=== PATIENT | female | born 1960 | race Caucasian/White ===

== ENCOUNTER 2018-02-12 10:46 | Inpatient (IN) | payer MEDICARE, OTHER ==
[~2018-02-12] VITALS: Ht 167.6 cm; Wt 58.0 kg
[2018-02-12] MEDS ORDERED: HALO5TAB5 PO (11:05)
[2018-02-12] MEDS ORDERED: SERT25TA3 PO (11:05)
[2018-02-12 11:33] LABS: BASOPHILS % (AUTO) 0 % (0-1); EOSINOPHILS # (AUTO) 0.03 x10^3/uL (0-0.4); EOSINOPHILS % (AUTO) 0 % (1-7); LYMPHOCYTES # (AUTO) 0.41 x10^3/uL (1-3.4); LYMPHOCYTES % (AUTO) 5 % (22-44); MD NO; MEAN CORPUSCULAR HEMOGLOBIN 28.4 pg (27.0-34.8); MEAN CORPUSCULAR HGB CONC 32.6 g/dL (32.4-35.8); MEAN CORPUSCULAR VOLUME 86.9 fL (80-100); MEAN PLATELET VOLUME 8.6 fL (7.4-10.4); MONOCYTES # (AUTO) 0.21 x10^3/uL (0.2-0.8); MONOCYTES % (AUTO) 3 % (2-9); NEUTROPHILS # (AUTO) 7.75 x10^3/uL (1.8-6.8); NEUTROPHILS % (AUTO) 92 % (42-75); PLATELET COUNT 236 x10^3/uL (130-400); RED BLOOD COUNT 4.65 x10^6/uL (3.82-5.3); RED CELL DISTRIBUTION WIDTH 13.4 % (9.6-15.2)
[2018-02-12] MEDS ORDERED: LORazepam 2 MG/ML, 1ML ONE (11:46)
[2018-02-12 11:47] LABS: ALANINE AMINOTRANSFERASE 68 U/L (12-78); ALBUMIN 3.3 g/dL (3.4-5.0); ANION GAP 6 mmol/L (5-15); CALCIUM 8.8 mg/dL (8.5-10.1); CHLORIDE 105 mmol/L (98-107); CREATININE 0.75 mg/dL (0.55-1.02)
[2018-02-12 11:50] LABS: SALICYLATE LEVEL < 1.7 mg/dL (2.8-20.0)
[2018-02-12 11:57] LABS: ALKALINE PHOSPHATASE 99 U/L (45-117); BILIRUBIN,TOTAL 0.4 mg/dL (0.2-1.0)
[2018-02-12 11:58] LABS: ACETAMINOPHEN < 2 mcg/mL (10-30)
[2018-02-12] MEDS ORDERED: LORazepam 2 MG/ML, 1ML IM ONE (12:30)
[2018-02-12] MEDS ORDERED: ZIPRASIDONE 20 MG INJ IM ONE ×2 (13:01→13:30)
[2018-02-12] MEDS: ENOXAPARIN 40 MG/0.4 ML SQ SCH (14:00)
[2018-02-12] MEDS ORDERED: ACETAMINOPHEN 325 MG TABLET PO PRN (14:00)
[2018-02-12] MEDS: HALOPERIDOL 5 MG TABLET PO SCH ×2 (16:00→21:00)
[2018-02-12] MEDS: ZIPRASIDONE 20 MG INJ IM PRN ×2 (17:50→23:04)
[2018-02-12] MEDS ORDERED: DIPHENHYDRAMINE 50 MG/ML, 1ML ONE (18:09)
[2018-02-12] MEDS: DIPHENHYDRAMINE 50 MG/ML, 1ML IM PRN (18:12)
[2018-02-12 19:25] VITALS: BP 118/65
[2018-02-12] MEDS: HALOPERIDOL 5 MG/ML IM PRN (22:41)
[2018-02-12] MEDS: LORazepam 2 MG/ML, 1ML IM PRN (23:04)
[2018-02-13 00:46] LABS: CULTURE INDICATED? NO; MICROSCOPIC NOT IND
[2018-02-13 00:57] LABS: AMPHETAMINE SCREEN, URINE Negative (Negative); BARBITURATE SCREEN, URINE Negative (Negative); BENZODIAZEPINE SCREEN, URINE Positive (Negative); CANNABINOID SCREEN, URINE Negative (Negative); COCAINE SCREEN, URINE Negative (Negative); METHADONE SCREEN, URINE Negative (Negative); OPIATE SCREEN, URINE Negative (Negative)
[2018-02-13 02:05] VITALS: BP 112/77
[2018-02-13] MEDS: DIPHENHYDRAMINE 50 MG/ML, 1ML IM PRN ×2 (03:34→14:42)
[2018-02-13] MEDS: LORazepam 2 MG/ML, 1ML IM PRN (06:15)
[2018-02-13 07:54] VITALS: BP 97/58
[2018-02-13] MEDS: HALOPERIDOL 5 MG TABLET PO SCH ×3 (09:00→22:21)
[2018-02-13] MEDS ORDERED: HALOPERIDOL 1 MG TABLET ONE ×2 (10:28→16:39)
[2018-02-13] MEDS: SERTRALINE 50MG TABLET PO SCH (10:32)
[2018-02-13] MEDS: ENOXAPARIN 40 MG/0.4 ML SQ SCH (10:32)
[2018-02-13] MEDS: HALOPERIDOL 5 MG/ML IM PRN ×2 (11:40→18:26)
[2018-02-13 14:06] VITALS: BP 93/58
[2018-02-13] MEDS: ZIPRASIDONE 20 MG INJ IM PRN (14:12)
[2018-02-13 20:30] VITALS: BP 140/73
[2018-02-14 02:00] VITALS: BP 92/55
[2018-02-14 03:57] VITALS: BP 95/55
[2018-02-14 07:52] VITALS: BP 93/60
[2018-02-14] MEDS: SERTRALINE 50MG TABLET PO SCH (10:43)
[2018-02-14] MEDS: HALOPERIDOL 5 MG TABLET PO SCH ×3 (10:44→21:15)
[2018-02-14] MEDS: ZIPRASIDONE 20 MG INJ IM PRN ×2 (11:15→23:52)
[2018-02-14 12:47] VITALS: BP 93/52
[2018-02-14] MEDS: DIPHENHYDRAMINE 50 MG/ML, 1ML IM PRN ×2 (13:37→21:15)
[2018-02-14] MEDS: HALOPERIDOL 5 MG/ML IM PRN (15:34)
[2018-02-14] MEDS: ENOXAPARIN 40 MG/0.4 ML SQ SCH (15:37)
[2018-02-14 20:00] VITALS: BP 102/50
[2018-02-15 02:00] VITALS: BP_SYST 128; BP_SYST 96; BP_DIAS 51; BP_DIAS 60
[2018-02-15] MEDS: HALOPERIDOL 5 MG/ML IM PRN ×2 (02:09→18:23)
[2018-02-15] MEDS: DIPHENHYDRAMINE 50 MG/ML, 1ML IM PRN (05:37)
[2018-02-15] MEDS: SERTRALINE 50MG TABLET PO SCH (08:06)
[2018-02-15] MEDS: HALOPERIDOL 5 MG TABLET PO SCH (08:07)
[2018-02-15 08:30] VITALS: BP 95/58
[2018-02-15 12:17] VITALS: BP 91/54
[2018-02-15 14:00] VITALS: BP 98/62
[2018-02-15] MEDS: ENOXAPARIN 40 MG/0.4 ML SQ SCH (15:06)
[2018-02-16 01:37] VITALS: BP 106/54
[2018-02-16] MEDS: HALOPERIDOL 5 MG/ML IM PRN ×3 (01:45→18:21)
[2018-02-16 02:00] VITALS: BP 106/54
[2018-02-16 08:03] VITALS: BP 110/65
[2018-02-16] MEDS ORDERED: TRAZ-137 PO (09:48)
[2018-02-16] MEDS ORDERED: DIVA500T2 PO (09:48)
[2018-02-16] MEDS ORDERED: MIRT45TA6 PO (09:48)
[2018-02-16] MEDS ORDERED: HALO5TAB5 PO (09:48)
[2018-02-16] MEDS ORDERED: SERT100T PO (09:48)
[2018-02-16] MEDS ORDERED: QUET50TA5 PO (09:48)
[2018-02-16 13:10] VITALS: BP 150/59
[2018-02-16] MEDS: ENOXAPARIN 40 MG/0.4 ML SQ SCH (16:08)
[2018-02-16 20:00] VITALS: BP 89/58
[2018-02-17] MEDS: TRAZODONE 50MG TABLET PO PRN ×2 (00:03→13:01)
[2018-02-17] MEDS: HALOPERIDOL 5 MG/ML IM PRN ×4 (00:04→20:35)
[2018-02-17 02:00] VITALS: BP 103/67
[2018-02-17 08:49] VITALS: BP 107/61
[2018-02-17 13:03] VITALS: BP 99/60
[2018-02-17] MEDS: ENOXAPARIN 40 MG/0.4 ML SQ SCH (14:43)
[2018-02-17 18:59] VITALS: BP 103/63
[2018-02-18] MEDS: HALOPERIDOL 5 MG/ML IM PRN ×2 (02:47→09:05)
[2018-02-18 02:50] VITALS: BP 135/67
[2018-02-18 08:30] VITALS: BP 96/64
[2018-02-18 12:36] VITALS: BP 99/58
[2018-02-18] MEDS: DIVALPROEX 125 MG CAP.SPRINK PO SCH ×2 (13:11→20:22)
[2018-02-18] MEDS: QUETIAPINE 25MG TABLET PO SCH ×3 (13:12→20:22)
[2018-02-18] MEDS: ENOXAPARIN 40 MG/0.4 ML SQ SCH (15:51)
[2018-02-18 20:26] VITALS: BP 107/63
[2018-02-19 00:58] VITALS: BP 107/57
[2018-02-19] MEDS: HALOPERIDOL 5 MG/ML IM PRN (03:24)
[2018-02-19 07:07] VITALS: BP 127/84
[2018-02-19] MEDS: QUETIAPINE 25MG TABLET PO SCH (07:50)
[2018-02-19] MEDS: DIVALPROEX 125 MG CAP.SPRINK PO SCH (07:50)
[2018-02-19 14:13] VITALS: BP 132/79
[2018-02-19] MEDS ORDERED: TRAZ-136 PO (14:37)
[2018-02-19] MEDS ORDERED: DIVA125C2 PO (14:37)
[2018-02-19] MEDS ORDERED: HALO5VIA2 IM (14:37)
[2018-02-19] MEDS ORDERED: QUET25TA PO (14:37)
[2018-02-19] MEDS: TRAZODONE 50MG TABLET PO PRN (14:54)
[2018-02-19] MEDS ORDERED: DIVALPROEX 125 MG CAP.SPRINK PO SCH (16:00)
== END 2018-02-19 17:10 | DRG 56 ==
LOC: ED 11:41 → EDIP 13:04 → 3NW 16:30 → 4WST 19:41
PROVIDERS: ADMIT Hospitalist; ATTEND Internal Medicine
DX: G30.0 Alzheimer's disease with early onset (principal); G93.41 Metabolic encephalopathy; F02.81 Dementia in other diseases classified elsewhere, unspecified severity, with behavioral disturbance; E44.1 Mild protein-calorie malnutrition; F29 Unspecified psychosis not due to a substance or known physiological condition; E88.09 Other disorders of plasma-protein metabolism, not elsewhere classified; R62.7 Adult failure to thrive; F32.9 Major depressive disorder, single episode, unspecified; F42.9 Obsessive-compulsive disorder, unspecified; F45.21 Hypochondriasis; F80.81 Childhood onset fluency disorder; Z51.5 Encounter for palliative care; Z78.1 Physical restraint status; Z90.710 Acquired absence of both cervix and uterus; Z68.20 Body mass index [BMI] 20.0-20.9, adult
CPT/HCPCS: 36415; 80053; 80307; 80329; 81003; 82565; 82607; 84443; 85025; 93005; 96372; 99285; G0378; J1650; J3486; G0480; J1200; J1630; J2060

== ENCOUNTER 2018-02-19 13:33 | Inpatient (IN) | payer MEDICARE, OTHER ==
[~2018-02-19] VITALS: Ht 165.1 cm; Wt 55.0 kg
[~2018-02-19 13:33] MED LIST: DIVA500T2 PO; HALO5TAB5 PO; MIRT45TA6 PO; QUET50TA5 PO; SERT100T PO; SERT25TA3 PO; TRAZ-137 PO
[2018-02-19] MEDS ORDERED: DIVA125C2 PO (14:37)
[2018-02-19] MEDS ORDERED: TRAZ-136 PO (14:37)
[2018-02-19] MEDS ORDERED: QUET25TA PO (14:37)
[2018-02-19] MEDS ORDERED: HALO5VIA2 IM (14:37)
[2018-02-19] MEDS ORDERED: DOCUSATE 100 MG CAPSULE PO PRN (16:30)
[2018-02-19] MEDS ORDERED: POLYETHYLENE GLYCOL 17 GM PACKET PO PRN (16:30)
[2018-02-19] MEDS ORDERED: BISACODYL 10 MG SUPP PR PRN (16:30)
[2018-02-19 19:31] VITALS: BP 136/88
[2018-02-19] MEDS: QUETIAPINE 25MG TABLET PO SCH (19:55)
[2018-02-19] MEDS: DIVALPROEX 125 MG CAP.SPRINK PO SCH (19:55)
[2018-02-20] MEDS: TRAZODONE 50MG TABLET PO PRN ×2 (07:07→21:13)
[2018-02-20] MEDS: DIVALPROEX 125 MG CAP.SPRINK PO SCH ×3 (07:07→20:13)
[2018-02-20] MEDS: QUETIAPINE 25MG TABLET PO SCH ×3 (07:07→20:14)
[2018-02-20 07:10] VITALS: BP 108/40
[2018-02-20 20:06] VITALS: BP 130/90
[2018-02-21 07:48] VITALS: BP 90/51
[2018-02-21] MEDS: TRAZODONE 50MG TABLET PO PRN (08:29)
[2018-02-21] MEDS: DIVALPROEX 125 MG CAP.SPRINK PO SCH ×3 (08:29→19:54)
[2018-02-21] MEDS: QUETIAPINE 25MG TABLET PO SCH ×3 (08:30→19:55)
[2018-02-21] MEDS ORDERED: ACETAMINOPHEN 325 MG TABLET ONE (15:15)
[2018-02-21] MEDS: ACETAMINOPHEN 325 MG TABLET PO PRN (15:18)
[2018-02-21 19:50] VITALS: BP 108/68
[2018-02-21] MEDS: TRAZODONE 50MG TABLET PO SCH (19:54)
[2018-02-22] MEDS: QUETIAPINE 25MG TABLET PO SCH ×3 (09:17→20:54)
[2018-02-22] MEDS: DIVALPROEX 125 MG CAP.SPRINK PO SCH ×3 (09:18→20:54)
[2018-02-22 10:47] VITALS: BP 96/54
[2018-02-22 19:05] VITALS: BP 101/64
[2018-02-22] MEDS: TRAZODONE 50MG TABLET PO SCH (20:55)
[2018-02-23 07:56] VITALS: BP 97/63
[2018-02-23] MEDS: DIVALPROEX 125 MG CAP.SPRINK PO SCH ×3 (08:25→20:28)
[2018-02-23] MEDS: QUETIAPINE 25MG TABLET PO SCH ×3 (08:25→20:28)
[2018-02-23] MEDS: ACETAMINOPHEN 325 MG TABLET PO PRN ×2 (18:25→21:35)
[2018-02-23 19:54] VITALS: BP 91/48
[2018-02-23] MEDS: TRAZODONE 50MG TABLET PO SCH (20:28)
[2018-02-23] MEDS: TRAZODONE 50MG TABLET PO PRN (21:54)
[2018-02-24] MEDS: DIVALPROEX 125 MG CAP.SPRINK PO SCH ×3 (09:05→19:52)
[2018-02-24] MEDS: ACETAMINOPHEN 325 MG TABLET PO PRN ×2 (09:05→14:33)
[2018-02-24] MEDS: QUETIAPINE 25MG TABLET PO SCH ×3 (09:05→19:52)
[2018-02-24 19:39] VITALS: BP 101/69
[2018-02-24] MEDS: TRAZODONE 50MG TABLET PO SCH (19:52)
[2018-02-24] MEDS: TRAZODONE 50MG TABLET PO PRN (22:11)
[2018-02-25] MEDS: DIVALPROEX 125 MG CAP.SPRINK PO SCH ×3 (08:53→20:04)
[2018-02-25] MEDS: QUETIAPINE 25MG TABLET PO SCH ×3 (08:54→20:04)
[2018-02-25 19:55] VITALS: BP 107/78
[2018-02-25] MEDS: TRAZODONE 50MG TABLET PO SCH (20:04)
[2018-02-25] MEDS: TRAZODONE 50MG TABLET PO PRN (20:05)
[2018-02-25] MEDS: ACETAMINOPHEN 325 MG TABLET PO PRN (20:49)
[2018-02-26 07:30] VITALS: BP 90/52
[2018-02-26] MEDS: DIVALPROEX 125 MG CAP.SPRINK PO SCH ×3 (09:30→20:00)
[2018-02-26] MEDS: QUETIAPINE 25MG TABLET PO SCH ×3 (09:30→20:00)
[2018-02-26 19:13] VITALS: BP 125/86
[2018-02-26] MEDS: TRAZODONE 50MG TABLET PO SCH (20:00)
[2018-02-26] MEDS: TRAZODONE 50MG TABLET PO PRN (22:38)
[2018-02-27] MEDS: ACETAMINOPHEN 325 MG TABLET PO PRN (01:01)
[2018-02-27] MEDS: DIVALPROEX 125 MG CAP.SPRINK PO SCH ×3 (08:46→20:05)
[2018-02-27] MEDS: QUETIAPINE 25MG TABLET PO SCH ×3 (08:47→20:04)
[2018-02-27 16:53] VITALS: BP 107/68
[2018-02-27 19:16] VITALS: BP 108/72
[2018-02-27] MEDS: TRAZODONE 50MG TABLET PO SCH (20:04)
[2018-02-27] MEDS: TRAZODONE 50MG TABLET PO PRN (20:05)
[2018-02-28 07:45] VITALS: BP 190/81
[2018-02-28] MEDS: QUETIAPINE 25MG TABLET PO SCH ×3 (09:48→21:11)
[2018-02-28] MEDS: DIVALPROEX 125 MG CAP.SPRINK PO SCH ×3 (09:48→21:11)
[2018-02-28] MEDS: TRAZODONE 50MG TABLET PO PRN ×2 (13:12→21:13)
[2018-02-28] MEDS ORDERED: LORazepam 1MG TABLET PO ONE (16:00)
[2018-02-28 20:00] VITALS: BP 91/58
[2018-02-28] MEDS: TRAZODONE 50MG TABLET PO SCH (21:11)
[2018-02-28] MEDS ORDERED: ZIPRASIDONE 20 MG INJ IM ONE ×3 (21:38→22:00)
[2018-03-01] MEDS: DIVALPROEX 125 MG CAP.SPRINK PO SCH ×3 (08:58→20:52)
[2018-03-01] MEDS: QUETIAPINE 25MG TABLET PO SCH ×3 (08:58→20:58)
[2018-03-01 14:33] LABS: MICROSCOPIC AUTO
[2018-03-01 14:38] LABS: CULTURE INDICATED? YES
[2018-03-01] MEDS ORDERED: LORazepam 1MG TABLET PO ONE (15:00)
[2018-03-01] MEDS: AMOXICILLIN/CLAV 875-125MG TABLET PO SCH (15:47)
[2018-03-01 20:05] VITALS: BP 105/46
[2018-03-01] MEDS: TRAZODONE 100MG TABLET PO SCH (20:52)
[2018-03-02] MEDS: AMOXICILLIN/CLAV 875-125MG TABLET PO SCH ×3 (04:24→21:09)
[2018-03-02 08:30] VITALS: BP 90/63
[2018-03-02] MEDS: DIVALPROEX 125 MG CAP.SPRINK PO SCH ×3 (09:00→21:17)
[2018-03-02] MEDS: QUETIAPINE 25MG TABLET PO SCH ×3 (09:50→21:10)
[2018-03-02] MEDS: TRAZODONE 50MG TABLET PO PRN ×2 (13:08→21:10)
[2018-03-02] MEDS: ACETAMINOPHEN 325 MG TABLET PO PRN (13:58)
[2018-03-02] MEDS ORDERED: ZIPRASIDONE 20MG CAPSULE PO PRN (16:00)
[2018-03-02] MEDS ORDERED: ZIPRASIDONE 20MG CAPSULE ONE (16:00)
[2018-03-02] MEDS ORDERED: ZIPRASIDONE 20MG CAPSULE PO ONE (16:30)
[2018-03-02 20:12] VITALS: BP 102/64
[2018-03-02] MEDS: TRAZODONE 100MG TABLET PO SCH (21:09)
[2018-03-02] MEDS: HALOPERIDOL 5 MG/ML IM PRN (21:49)
[2018-03-03] MEDS: AMOXICILLIN/CLAV 875-125MG TABLET PO SCH ×2 (12:40→20:33)
[2018-03-03] MEDS: DIVALPROEX 125 MG CAP.SPRINK PO SCH ×3 (12:40→20:34)
[2018-03-03] MEDS ORDERED: QUETIAPINE 25MG TABLET PO SCH (16:00)
[2018-03-03] MEDS: QUETIAPINE 100MG TABLET PO SCH ×2 (16:24→20:34)
[2018-03-03 19:35] VITALS: BP 111/67
[2018-03-03] MEDS: TRAZODONE 50MG TABLET PO PRN (20:34)
[2018-03-03] MEDS: TRAZODONE 100MG TABLET PO SCH (20:34)
[2018-03-04] VITALS (7 sets, daily range): BP systolic 96–127; BP diastolic 65–81
[2018-03-04] MEDS ORDERED: LORazepam 1MG TABLET PO ONE (01:00)
[2018-03-04] MEDS: QUETIAPINE 100MG TABLET PO SCH (08:18)
[2018-03-04] MEDS: DIVALPROEX 125 MG CAP.SPRINK PO SCH ×3 (08:18→20:22)
[2018-03-04] MEDS: AMOXICILLIN/CLAV 875-125MG TABLET PO SCH ×2 (08:18→20:21)
[2018-03-04] MEDS: LORazepam 1MG TABLET PO PRN (19:24)
[2018-03-04] MEDS: TRAZODONE 100MG TABLET PO SCH (20:21)
[2018-03-04] MEDS: TRAZODONE 50MG TABLET PO PRN (20:22)
[2018-03-05] MEDS: AMOXICILLIN/CLAV 875-125MG TABLET PO SCH ×2 (08:40→20:07)
[2018-03-05] MEDS: DIVALPROEX 125 MG CAP.SPRINK PO SCH ×3 (08:41→20:08)
[2018-03-05] MEDS: LORazepam 1MG TABLET PO PRN ×2 (08:41→18:29)
[2018-03-05 09:56] VITALS: BP 100/65
[2018-03-05 19:49] VITALS: BP 102/69
[2018-03-05] MEDS: TRAZODONE 100MG TABLET PO SCH (20:09)
[2018-03-06] MEDS: LORazepam 1MG TABLET PO PRN ×3 (08:42→23:32)
[2018-03-06] MEDS: AMOXICILLIN/CLAV 875-125MG TABLET PO SCH (08:42)
[2018-03-06] MEDS: DIVALPROEX 125 MG CAP.SPRINK PO SCH ×3 (08:42→20:15)
[2018-03-06] MEDS ORDERED: DIPHENHYDRAMINE 25 MG CAPSULE PO ONE (18:06)
[2018-03-06 18:55] VITALS: BP 113/64
[2018-03-06 19:43] VITALS: BP 113/64
[2018-03-06] MEDS: TRAZODONE 100MG TABLET PO SCH (20:17)
[2018-03-07] MEDS: DIVALPROEX 125 MG CAP.SPRINK PO SCH ×3 (11:06→21:00)
[2018-03-07] MEDS: LORazepam 1MG TABLET PO PRN ×2 (11:06→17:11)
[2018-03-07] MEDS: TRAZODONE 100MG TABLET PO SCH (21:00)
[2018-03-08] MEDS: DIVALPROEX 125 MG CAP.SPRINK PO SCH ×3 (09:09→20:00)
[2018-03-08] MEDS: LORazepam 1MG TABLET PO PRN ×3 (09:09→20:01)
[2018-03-08 14:58] VITALS: BP 118/53
[2018-03-08] MEDS: ACETAMINOPHEN 325 MG TABLET PO PRN (15:09)
[2018-03-08] MEDS: HALOPERIDOL 5 MG/ML IM PRN (15:54)
[2018-03-08 15:56] VITALS: BP 121/76
[2018-03-08 16:29] VITALS: BP 143/65
[2018-03-08 19:33] VITALS: BP 116/67
[2018-03-08] MEDS: TRAZODONE 100MG TABLET PO SCH (20:01)
[2018-03-09] MEDS: DIVALPROEX 125 MG CAP.SPRINK PO SCH ×3 (08:18→19:37)
[2018-03-09] MEDS: TRAZODONE 50MG TABLET PO PRN (08:19)
[2018-03-09] MEDS: ACETAMINOPHEN 325 MG TABLET PO PRN ×2 (10:03→19:37)
[2018-03-09] MEDS: LORazepam 1MG TABLET PO PRN ×2 (10:03→17:46)
[2018-03-09 11:30] VITALS: BP 98/50
[2018-03-09 19:37] VITALS: BP 113/69
[2018-03-09] MEDS: TRAZODONE 100MG TABLET PO SCH (19:38)
[2018-03-10] MEDS: LORazepam 1MG TABLET PO PRN ×3 (03:11→17:42)
[2018-03-10] MEDS: TRAZODONE 50MG TABLET PO PRN (03:11)
[2018-03-10] MEDS: DIVALPROEX 125 MG CAP.SPRINK PO SCH ×3 (07:19→20:56)
[2018-03-10 07:27] VITALS: BP 84/50
[2018-03-10 07:49] VITALS: BP 106/56
[2018-03-10 07:57] VITALS: BP 106/56
[2018-03-10] MEDS: ACETAMINOPHEN 325 MG TABLET PO PRN (11:01)
[2018-03-10] MEDS ORDERED: TRAZODONE 100MG TABLET PO SCH (21:00)
[2018-03-10 21:30] VITALS: BP 117/70
[2018-03-11] MEDS: LORazepam 1MG TABLET PO PRN ×2 (06:26→12:36)
[2018-03-11] MEDS: ACETAMINOPHEN 325 MG TABLET PO PRN (06:26)
[2018-03-11 07:45] VITALS: BP 98/61
[2018-03-11] MEDS: DIVALPROEX 125 MG CAP.SPRINK PO SCH ×2 (09:17→15:00)
[2018-03-11] MEDS: TRAZODONE 50MG TABLET PO PRN (13:55)
== END 2018-03-11 15:17 | disposition hospice, home (50) | DRG 57 ==
LOC: 3E 16:15
PROVIDERS: ADMIT Counselor Mental Health; ATTEND Counselor Mental Health
DX: G30.9 Alzheimer's disease, unspecified (principal); F02.81 Dementia in other diseases classified elsewhere, unspecified severity, with behavioral disturbance; E46 Unspecified protein-calorie malnutrition; F32.9 Major depressive disorder, single episode, unspecified; R62.7 Adult failure to thrive; F20.9 Schizophrenia, unspecified; G47.00 Insomnia, unspecified; R32 Unspecified urinary incontinence; Z66 Do not resuscitate; Z78.1 Physical restraint status; Z79.899 Other long term (current) drug therapy; Z87.891 Personal history of nicotine dependence; Z68.20 Body mass index [BMI] 20.0-20.9, adult
CPT/HCPCS: 70450; 81001; 87086; J3486; 92523-GN; J1630; Q0163